=== PATIENT | male | born 1970 | race Caucasian/White ===

== ENCOUNTER 2018-05-09 13:48 | Inpatient (IN) | payer BC ==
[~2018-05-09] VITALS: Ht 180.3 cm; Wt 81.5 kg
[2018-05-09 15:53] LABS: BASO % 0.4 % (0.0-2.0); EOS % 0.6 % (0-4.0); GRAN # 3.2 (1.4-6.5); GRAN % 67.9 % (42.2-75.2); HEMATOCRIT 44.2 % (42.0-52.0); HEMOGLOBIN 15.4 g/dl (13.5-18.0); LYMPH # 1.3 (1.2-3.4); LYMPH % 26.5 % (20.0-51.0); MEAN CELL VOLUME 91 fl (80.0-100.0); MEAN CORPUSCULAR HEMOGLOBIN 32 pg (27.0-31.0); MEAN CORPUSCULAR HGB CONC 35 g/dl (33.0-37.0); MEAN PLATELET VOLUME 11.2 fl (7.4-10.4); MONO # 0.2 (0.1-0.6); MONO % 4.4 % (1.7-9.3); PLATELET COUNT 205 K/mm3 (130-400); RED BLOOD COUNT 4.86 M/mm3 (4.20-5.60); REDCELL DISTRIBUTION WIDTH-CV 12.3 % (11.5-14.5)
[2018-05-09 15:59] LABS: ALBUMIN 4.9 gm/dL (3.5-5.0); BILIRUBIN,TOTAL 0.7 mg/dL (0.0-1.0); CALCIUM 9.9 mg/dL (8.4-10.2); CREATININE, serum 0.86 mg/dL (0.66-1.25); POTASSIUM 4.3 mmol/L (3.4-5.0); TOTAL PROTEIN 7.9 gm/dL (6.4-8.2)
--- NOTE | 2018-05-09 18:27 | NUR ---
Pt sitting in bed with family present. Pt breathing even and unlabored, alert and oriented X4. Pt and family asking about anticipated care plans. Eager to learn, engaged and interested in plan of care. IV in RF, no redness or swelling noted. Oriented to room, call light in reach. HOUSING INSPECTORS at bedside.
--- NOTE | 2018-05-09 19:12 | NUR ---
Report given to Rebeca GIPSON, pt denies needs, parents at bedside, dinner ordered
[2018-05-09 19:55] LABS: INR 0.9 (0.8-3.0); PROTHROMBIN TIME 10.5 SECONDS (9.7-12.8)
[2018-05-09 19:57] VITALS: BP 122/73; PULSE 81; TEMP 98
[2018-05-09 19:58] LABS: PARTIAL THROMBOPLASTIN TIME 26.6 SECONDS (26.0-37.0)
--- NOTE | 2018-05-09 21:04 | NUR ---
Patient assessed at this time. Denies having pain and discomfort. Scoring 0 for detox at this time. Declines having any needs at this time. Does request to speak with social work coordinator in the morning. Wanting to set up rehab, but preferrably outpatient, as he is eagier to go back to work.
[2018-05-09 22:11] VITALS: BP 121/63; PULSE 82; TEMP 98.7
--- NOTE | 2018-05-09 22:46 | NUR ---
Patient scored a 4 on alcohol detox screen. Given 1 mg Ativan PO per orders at this time. Voices no other needs or concerns at this time. Call light is within reach. Denies the need to go to the bathroom. Reminded that urine sample is needed. Seizure precautions are in place.
[2018-05-09 23:57] VITALS: BP 117/72; PULSE 86; TEMP 98.1
[2018-05-10] VITALS (10 sets, daily range): BP systolic 108–131; BP diastolic 52–79; PULSE 71–85; TEMP 97.3–98.7
--- NOTE | 2018-05-10 00:05 | NUR ---
Patient scored 3 on detox screen. No intervention needed at this time. Voices no needs or concerns at this time. Continues to deny the need to void. UA still needed.
--- NOTE | 2018-05-10 02:20 | NUR ---
Patient scored a 4 on detox screen. Given 1 mg Ativan per orders at this time.
[2018-05-10 06:10] LABS: BASO % 0.5 % (0.0-2.0); EOS # 0.1 (0.0-0.7); EOS % 3.1 % (0-4.0); GRAN # 2.4 (1.4-6.5); GRAN % 56.8 % (42.2-75.2); LYMPH # 1.4 (1.2-3.4); MEAN CELL VOLUME 92 fl (80.0-100.0); MEAN CORPUSCULAR HGB CONC 35 g/dl (33.0-37.0); MEAN PLATELET VOLUME 11.1 fl (7.4-10.4); MONO # 0.2 (0.1-0.6); MONO % 5.4 % (1.7-9.3); PLATELET COUNT 130 K/mm3 (130-400); RED BLOOD COUNT 3.83 M/mm3 (4.20-5.60); REDCELL DISTRIBUTION WIDTH-CV 12.3 % (11.5-14.5)
[2018-05-10 06:19] LABS: ALBUMIN 3.5 gm/dL (3.5-5.0); BILIRUBIN,TOTAL 1.4 mg/dL (0.0-1.0); CALCIUM 8.7 mg/dL (8.4-10.2); CREATININE, serum 0.76 mg/dL (0.66-1.25); POTASSIUM 3.7 mmol/L (3.4-5.0)
--- NOTE | 2018-05-10 06:55 | NUR ---
Patient has been doing well. Continues on alcohol detox screen every 2 hours. Received PRN Ativan when greater than 4. Denies having pain and discomfort at this time. Has been sleeping on and off throughout the night. Continues on NS at 125 ml/hr to right forearm. Seizure precautions are in place. Was able to void for this nurse. 650 mls of dark yellow, clear urine. Urine sample obtained per orders. Resting in bed with eyes closed at this time. Call light is within reach.
[2018-05-10 07:04] LABS: COLLECTION METHOD CLEAN CATCH
[2018-05-10 07:12] LABS: MUCOUS Present /lpf; PH 7 (5-8); SQUAMOUS EPITHELIAL None Seen /hpf; URINE APPEARANCE Clear; URINE BACTERIA None Seen /hpf; URINE BILIRUBIN Negative (NEGATIVE); URINE BLOOD Negative (NEGATIVE); URINE COLOR Yellow; URINE GLUCOSE Negative (NEGATIVE); URINE KETONE Trace (NEGATIVE); URINE LEUKOCYTE ESTERASE Negative (NEGATIVE); URINE NITRATE Negative (NEGATIVE); URINE PROTEIN(semi-quant) Negative (NEGATIVE); URINE RBC 0-2 /hpf
[2018-05-10 07:22] LABS: TRICYCLIC ANTIDEPRESS URINE NEGATIVE
[2018-05-10 07:31] LABS: HEMATOCRIT 35.3 % (42.0-52.0); HEMOGLOBIN 12.2 g/dl (13.5-18.0); MEAN CORPUSCULAR HEMOGLOBIN 32 pg (27.0-31.0)
--- NOTE | 2018-05-10 07:53 | NUR ---
Patient alert and oriented, answers questions appropriately. See assessment. Neuros intact. Slight tremors noted when arms extended. No headache. Reports slight anxiety. Able to serial count and repeat serial words correctly. Able to communicate needs. Reinforced need to voice changes in thought process to nurse. Voices that he wants to detox and remain with no etoh. No other c/o at this time.
--- NOTE | 2018-05-10 09:52 | NUR ---
Initial visit; Patient thanked Cloud Engagement Partner for looking in on him and offering God's blessings and to keep him in her prayers.
--- NOTE | 2018-05-10 14:24 | NUR ---
SW and SW student attended clinical rounding and met with patient to discuss discharge planning. Patients PCP is Dr Strickland and he lives alone in [facility]. Patient is agreeable to staying in the hosptial for Detox. He would like to do outpatient treatment after discharge so he would be able to return to work. He would like to stay in [place] and reports he works during the week from 7-330. EMILY will contact [facility] and [facility] to obtain options for patient. EMILY will continue to follow.
--- NOTE | 2018-05-10 14:41 | NUR ---
EMILY student contacted [facility] ([phone]) and [facility] ([phone]) to talk about the patient for outpatient rehab options. [facility] tried to call their advertising sales representative who does hopsital visits but was unable to reach them. [facility] said they will send the advertising sales representative a message to contact EMILY back. EMILY will talk with the patient once information is collected from both places.
--- NOTE | 2018-05-10 19:32 | NUR ---
Patient sitting up in bed eating dinner. Telemetry put back on after pt's shower. Assessment completed, denies pain. Alert, oriented x4. On seizure precautions and CIWA protocol. IVF infusing at 125 mls/hr into right wrist, no redness/edema. NO further needs at this time.
[2018-05-11] VITALS (12 sets, daily range): BP systolic 111–132; BP diastolic 71–88; PULSE 63–73; TEMP 97.5–98.7
--- NOTE | 2018-05-11 05:15 | NUR ---
Patient slept on/off last night. Scoring 2's on CIWA. No seizure activity noted. Vitals stable. NO reports of pain. IVF infusing at 125 mls/hr. Alert and oriented x4. Neuro checks remain unchanged. NO further needs at this time.
[2018-05-11 06:26] LABS: BASO % 0.3 % (0.0-2.0); EOS # 0.2 (0.0-0.7); EOS % 4.6 % (0-4.0); GRAN % 54.5 % (42.2-75.2); HEMATOCRIT 37.5 % (42.0-52.0); LYMPH # 1.3 (1.2-3.4); LYMPH % 34.1 % (20.0-51.0); MEAN CELL VOLUME 93 fl (80.0-100.0); MEAN CORPUSCULAR HEMOGLOBIN 32 pg (27.0-31.0); MEAN CORPUSCULAR HGB CONC 35 g/dl (33.0-37.0); MEAN PLATELET VOLUME 11.9 fl (7.4-10.4); MONO # 0.2 (0.1-0.6); MONO % 6.2 % (1.7-9.3); PLATELET COUNT 108 K/mm3 (130-400); RED BLOOD COUNT 4.02 M/mm3 (4.20-5.60); REDCELL DISTRIBUTION WIDTH-CV 12.3 % (11.5-14.5)
[2018-05-11 06:39] LABS: ALBUMIN 3.7 gm/dL (3.5-5.0); BILIRUBIN,TOTAL 0.7 mg/dL (0.0-1.0); CALCIUM 8.9 mg/dL (8.4-10.2); CREATININE, serum 0.78 mg/dL (0.66-1.25); POTASSIUM 3.6 mmol/L (3.4-5.0); TOTAL PROTEIN 6.3 gm/dL (6.4-8.2)
--- NOTE | 2018-05-11 07:03 | NUR ---
Report given to BRANDAN Jordan. Patient resting in bed. No needs at this time.
--- NOTE | 2018-05-11 09:30 | NUR ---
Assessment complete. Pt is AXO X3, denies having any pain at this time. Breathing is even and unlabored on room air. Tele on. RF infusing, remains free of complications, and is CDI. Pt is sitting up in the bed finishing his breakfast at this time and he denies further needs. Call light within reach, will continue to monitor.
--- NOTE | 2018-05-11 15:55 | NUR ---
EMILY garcia met with the patient to talk about options for outpatient alcohol rehab upon discharge. EMILY garcia reviewed the information that was given by a outbound telemarketing representative at the [facility] in [facility]. EMILY garcia is still waiting to hear back from [facility]. EMILY garcia will attempt to contact [facility] again.
--- NOTE | 2018-05-11 18:16 | NUR ---
Pt has been resting on and off throughout the day. He has remained free of pain. Pt is sitting up in the bed watching TV at this time and he denies further needs. Call light within reach.
--- NOTE | 2018-05-11 18:42 | NUR ---
Report given to BRANDAN March.
--- NOTE | 2018-05-11 19:58 | NUR ---
Patient resting in bed. Assessment completed, vitals stable, denies pain. Requesting new glass of ice water- given. Evening thiamine given. Scored 1 on CIWA. Will continue with q2h vitals. Alert and oriented x 4. NO siezure acitivity noted, on precuations. No further needs at this time.
[2018-05-12] VITALS (11 sets, daily range): BP systolic 106–127; BP diastolic 67–82; PULSE 68–93; TEMP 97–98.3
--- NOTE | 2018-05-12 05:22 | NUR ---
Pt slept most of the night. Scoring 1 on CIWA, vitals q2h, vitals stable. Alert and oriented x4, indpendent in room. NO needs at this time.
--- NOTE | 2018-05-12 06:12 | NUR ---
Pt reporting headache this morning with 0600 vitals. Given 325 mg of acetaminophen.
[2018-05-12 06:28] LABS: ALBUMIN 4.2 gm/dL (3.5-5.0); BILIRUBIN,TOTAL 0.6 mg/dL (0.0-1.0); CALCIUM 9.7 mg/dL (8.4-10.2); CREATININE, serum 0.87 mg/dL (0.66-1.25); POTASSIUM 3.4 mmol/L (3.4-5.0); TOTAL PROTEIN 7.2 gm/dL (6.4-8.2)
[2018-05-12 06:33] LABS: BASO % 0.2 % (0.0-2.0); EOS # 0.2 (0.0-0.7); EOS % 4.5 % (0-4.0); GRAN # 2.5 (1.4-6.5); GRAN % 56.3 % (42.2-75.2); HEMATOCRIT 41.7 % (42.0-52.0); HEMOGLOBIN 14.4 g/dl (13.5-18.0); LYMPH # 1.6 (1.2-3.4); LYMPH % 35.4 % (20.0-51.0); MEAN CELL VOLUME 91 fl (80.0-100.0); MEAN CORPUSCULAR HEMOGLOBIN 32 pg (27.0-31.0); MEAN CORPUSCULAR HGB CONC 35 g/dl (33.0-37.0); MEAN PLATELET VOLUME 12.1 fl (7.4-10.4); MONO # 0.2 (0.1-0.6); MONO % 3.4 % (1.7-9.3); PLATELET COUNT 120 K/mm3 (130-400); RED BLOOD COUNT 4.56 M/mm3 (4.20-5.60); REDCELL DISTRIBUTION WIDTH-CV 12.1 % (11.5-14.5)
--- NOTE | 2018-05-12 07:17 | NUR ---
REport kobi to BRANDAN Tan. Patient has no needs at this time.
--- NOTE | 2018-05-12 08:35 | NUR ---
Pt is A+Ox3, pleasant, denies pain, denies URIBE, denies SOB. He is not diaphoretic and CIWA score was 1 this morning. Eating a generous breakfast with no nausea. Physical assessment completed. Call light in reach, no further needs
--- NOTE | 2018-05-12 13:33 | NUR ---
EMILY garcia contacted [facility] again to try to get information on outpatient alcohol rehab and was successful. EMILY garcia met with the patient and his father and relayed the information about [facility] and the [facility] and patient chose [facility] to continue services with. EMILY garcia was able to make an appointment for the patient 05/18/18 at 10:30am at [facility] in [place]. Patient was agreeable with the date and location. No other discharge needs anticipated at this time.
--- NOTE | 2018-05-12 18:18 | NUR ---
Through shift pt vitals have been stable and WNL. CIWA has been 1, no c/o pain, he is independent in room. Liver US obtained today, no results yet. Family visiting throughout day, no needs at this time, [facility]
--- NOTE | 2018-05-12 19:06 | NUR ---
Report given to Rebeca GIPSON, pt denies needs
--- NOTE | 2018-05-12 20:27 | NUR ---
Patient assessed at this time. Sitting up in recliner watching TV. Denies having pain and discomfort. Scoring 0 on detox screen. Denies having any needs or concerns at this time. INT to right forearm flushed per orders. Site patent, and without redness, warmth, swelling, and pain. Call light within reach.
[2018-05-13] VITALS (11 sets, daily range): BP systolic 111–135; BP diastolic 66–82; PULSE 72–87; TEMP 97.1–98.7
--- NOTE | 2018-05-13 02:53 | NUR ---
Patient has denied having pain and discomfort so far this shift. Has not been scoring on detox screen. Voices that he is feeling well. Denies having any needs or concerns. Voices that he is happy with the plan of outpatient therapy, and the appt set up with [facility] in [place] next week. Resting in bed with eyes closed at this time. Call light is within reach.
[2018-05-13 07:12] LABS: BASO % 0.5 % (0.0-2.0); EOS # 0.2 (0.0-0.7); EOS % 3.8 % (0-4.0); GRAN % 51.1 % (42.2-75.2); HEMATOCRIT 41.2 % (42.0-52.0); HEMOGLOBIN 14.3 g/dl (13.5-18.0); LYMPH # 1.5 (1.2-3.4); LYMPH % 38.3 % (20.0-51.0); MEAN CELL VOLUME 92 fl (80.0-100.0); MEAN CORPUSCULAR HEMOGLOBIN 32 pg (27.0-31.0); MEAN CORPUSCULAR HGB CONC 35 g/dl (33.0-37.0); MEAN PLATELET VOLUME 12.3 fl (7.4-10.4); MONO # 0.2 (0.1-0.6); PLATELET COUNT 121 K/mm3 (130-400); RED BLOOD COUNT 4.49 M/mm3 (4.20-5.60); REDCELL DISTRIBUTION WIDTH-CV 12.1 % (11.5-14.5)
--- NOTE | 2018-05-13 07:13 | NUR ---
Report given to on-coming nurse.
[2018-05-13 07:24] LABS: ALBUMIN 4.1 gm/dL (3.5-5.0); BILIRUBIN,TOTAL 0.6 mg/dL (0.0-1.0); CALCIUM 9.4 mg/dL (8.4-10.2); CREATININE, serum 0.9 mg/dL (0.66-1.25); POTASSIUM 3.7 mmol/L (3.4-5.0); TOTAL PROTEIN 6.8 gm/dL (6.4-8.2)
--- NOTE | 2018-05-13 07:44 | NUR ---
Assessment complete. Pt is AXO X3, denies having any pain at this time. Breathing is even and unlaboredon room air. Tele on. RF INT flushes easily, remains free of complications, and is CDI. Pt is up walking around his room and he denies further needs. Call light within reach, will continue to monitor.
[2018-05-13 09:06] LABS: PROTHROMBIN TIME 11.1 SECONDS (9.7-12.8)
[2018-05-13 15:26] LABS: ALBUMIN 4.4 gm/dL (3.5-5.0); BILIRUBIN,TOTAL 0.4 mg/dL (0.0-1.0); CALCIUM 9.7 mg/dL (8.4-10.2); CREATININE, serum 0.95 mg/dL (0.66-1.25); POTASSIUM 4.1 mmol/L (3.4-5.0); TOTAL PROTEIN 7.5 gm/dL (6.4-8.2)
--- NOTE | 2018-05-13 19:27 | NUR ---
Pt has been resting on and off throughout the day. He has remained free of pain. Pt is sitting up in the chair watching TV at this time and he denies further needs. Call light within reach. Report given to BRANDAN Jose.
--- NOTE | 2018-05-13 20:31 | NUR ---
Patient assessed at this time. Denies having pain and discomfort. Scoring zero for alcohol detox. Denies having any needs or concerns at this time. Sitting in recliner watching TV. Call light is within reach. Peripheral IV to right forearm patent, and without rednes, warmth, swelling, and pain.
--- NOTE | 2018-05-14 00:31 | NUR ---
Continues to not score on detox screen. Denies having pain and discomfort. No questions or concerns voiced at this time. Resting in bed with eyes closed at this time. Call light is within reach.
[2018-05-14 04:24] VITALS: BP 108/67; PULSE 78
--- NOTE | 2018-05-14 05:04 | NUR ---
Voices no needs or concerns at this time. Denies having any pain or discomfort. Continues to score zero on detox screen. Resting in bed at this time. Call light is within reach.
--- NOTE | 2018-05-14 07:13 | NUR ---
Report given to next shift.
[2018-05-14 07:42] VITALS: BP 109/70; PULSE 80; TEMP 97.7
--- NOTE | 2018-05-14 07:51 | NUR ---
Assessment complete. Pt is AXO X3, denies having any pain at this time. Breathing is even and unlabored on room air. Tele on. RF INT flushes easily, remains free of complications, and is CDI. Pt is sitting up in the chair waiting for his breakfast to arrive at this time and he denies further needs. Call light within reach, will continue to monitor.
[2018-05-14 07:54] LABS: PROTHROMBIN TIME 11.1 SECONDS (9.7-12.8)
[2018-05-14 08:07] LABS: ALBUMIN 3.8 gm/dL (3.5-5.0); BILIRUBIN,TOTAL 0.3 mg/dL (0.0-1.0); CALCIUM 9.3 mg/dL (8.4-10.2); CREATININE, serum 0.97 mg/dL (0.66-1.25); POTASSIUM 3.8 mmol/L (3.4-5.0); TOTAL PROTEIN 6.4 gm/dL (6.4-8.2)
[2018-05-14 10:05] VITALS: BP 124/79; PULSE 86; TEMP 98
[2018-05-14 12:07] VITALS: BP 124/79; PULSE 84; TEMP 97.6
[2018-05-14] MEDS ORDERED: DUO-KAPS1 CAP PO (12:28)
[2018-05-14] MEDS ORDERED: FOLIC ACID 11 MG/TA1 PO (12:28)
[2018-05-14] MEDS ORDERED: THIAMINE 1100 MG/TAB PO (12:28)
--- NOTE | 2018-05-14 14:50 | NUR ---
Pt discharged at this time. RF INT discontinued with the catheter tip intact. Education provided and all questions were answered. Pt verbalizes understanding. Pt escourted out ambulatory with this nurse.
== END 2018-05-14 14:54 | disposition home or self-care (01) | DRG 897 ==
LOC: COL.ER 13:48 → MEDICAL 16:37
PROVIDERS: Emergency Medicine; Hospitalist; Nurse Practitioner; Physician Assistant; ADMIT Family Medicine
DX: F10.239 Alcohol dependence with withdrawal, unspecified (principal); Y90.7 Blood alcohol level of 200-239 mg/100 ml; R73.9 Hyperglycemia, unspecified; K70.10 Alcoholic hepatitis without ascites
CPT/HCPCS: OP; 99222-AI; 99231-AI; 99232-AI; 99239; G0378; J2060; J3411; J7030